=== PATIENT | female | born 1975 | race Caucasian/White ===

== ENCOUNTER 2018-04-10 15:30 | Inpatient (IN) | payer OTHER ==
[~2018-04-10] VITALS: Ht 157.5 cm; Wt 85.7 kg
--- NOTE | 2018-04-10 17:55 | NUR ---
DRILL DOCTOR PHONE REPORT FROM [place] REPORT RECEIVED FROM FRANCE CORDOVA IN THE ED @ [facility]. 42 YR OLD FEMALE PRESENTED IN ED WITH CHEST PAINS X3 WEEKS WORSE AT WORK TODAY AND 911 CALLED. VITALS FORM MEDICS ON SCENE AND ED ELEVATED BP 150/90 AND CHEST PAIN OF 10/10. PATIENT MOSTLY SYRIAC SPEAKING SO HISTORY LIMITED. KNOW HX DM II . FINDINGS IN ED NORMAL LABS AND VITALS , NEG . MEDS GIVEN IN ED NITRO X3 LAST DOSE @ 1430 MORPHINE 4 MG X2 @1511 ATIVAN X1 @1605 , ASA 325 @1408 ZOFRAN @1502. IV (R) AC 20 GAUGE. CURRENTLY ON 2LTRS N/C WITH O2 SAT @ 97. TRANSPORT READY TO LEAVE TO [facility].
[2018-04-10] MEDS ORDERED: LISI-607 PO (18:52)
[2018-04-10] MEDS ORDERED: ASPI-1152 PO (18:52)
[2018-04-10] MEDS ORDERED: SIMV10TA6 PO (18:52)
[2018-04-10] MEDS ORDERED: GLIP1TAB6 PO (18:52)
--- NOTE | 2018-04-10 18:54 | NUR ---
UKRAINIAN FOLK ARTS INSTRUCTORDIRECTOR ELECTRONICS NOTES PATIENT ARRIVED @ 1830 VIA AMBULANCE. A/O X3 NO SIGNS OR SYMPTOMS OF RESPIRATORY DISTRESS C/O SHARP CHEST PAIN 11/07. VITALS 118 Addendum: 04/10/18 at 1907 by RYDER ARMENTA RN VITALS FOLLOWS BP118/79 HR 82 RR 16 O2 98% ON RA. SINUS RHYTHM PATIENT WELL NOURISHED 42 TEAR OLD. SKIN INTACT WILL ENDORSE REPORT GIVEN BY SEDRICK HOUGH AND PARAMEDICS
[2018-04-10 20:00] VITALS: BP 132/87
--- NOTE | 2018-04-10 20:00 | NUR ---
CONSUMER CREDIT COUNSELOR NOTES REPORT RECEIVED FROM USHA CORDOVA. PT IS A DIRECT ADMIT FROM [place]. RECEIVED PT IN BED AWAKE FAMILY AT BED SIDE. PATIENT MOSTLY IRAQI SPEAKING, A& 0X4. VSS. (R) AC 20 GAUGE S/L. PT PLACED ON N/C WITH O2 SAT @ 98. PT ORIENTED TO UNIT. ALL SAFETY PRECAUTIONS TAKEN. AWAITING ORDERS FROM MD, WILL PROCEED WITH ADMISSION PROCESS AND WILL CONT TO MONITOR.
[2018-04-10] MEDS ORDERED: MORPHINE SULFATE INJ 2 MG/ML DISP.SYRIN IV PRN (20:30)
[2018-04-10] MEDS ORDERED: NITROGLYCERIN 0.4 MG/TAB BOTTLE SL PRN (20:30)
[2018-04-10] MEDS ORDERED: ZOLPIDEM TARTRATE 5 MG TABLET PO PRN (20:30)
[2018-04-10] MEDS ORDERED: HYDROCODONE/APAP 5/325MG 1 EACH TABLET PO PRN (20:30)
[2018-04-10] MEDS ORDERED: MAGNESIUM HYDROXIDE 30 ML UDC PO PRN (20:30)
[2018-04-10] MEDS ORDERED: ONDANSETRON HCL/PF 4 MG/2 ML VIAL IVP PRN (20:30)
[2018-04-10] MEDS ORDERED: MAG HYDROX/AL HYDROX/SIMETH 30 ML UDC PO PRN (20:30)
[2018-04-10] MEDS ORDERED: ACETAMINOPHEN 325 MG TABLET PO PRN (20:30)
[2018-04-10] MEDS ORDERED: Z GUARD REMEDY 2 OZ OINT TP PRN (20:30)
[2018-04-10] MEDS ORDERED: DEXTROSE 50%-WATER 50 ML DISP.SYRIN IV PRN (20:30)
--- NOTE | 2018-04-10 20:35 | NUR ---
RN NOTES ADMISSION ORDERS RECEIVED FROM DR AVRIL PETERS.
[2018-04-10] MEDS: INSULIN REGULAR, HUMAN 100 UNIT/ML 3 ML VIAL SQ PRN (21:14)
[2018-04-10] MEDS: BLOOD SUGAR DIAGNOSTIC 1 EACH STRIP IN SCH (21:15)
[2018-04-11] VITALS (15 sets, daily range): BP systolic 95–121; BP diastolic 50–73
--- NOTE | 2018-04-11 06:48 | NUR ---
RN CLOSING NOTES PATIENT REMAINED STABLE FOR THE ENTIRE SHIFT. NO ACUTE CHANGES NOTED. ALL NEEDS MET.ADMISSION COMPLETED. ALL MEDICATION GIVEN. EKG DONE LABS DONE. CALL LIGHT WITHIN REACH AT ALL TIME. SAFETY MEASURES KEPT IN PLACE. WILL ENDORSE TO AM SHIFT.
--- NOTE | 2018-04-11 07:00 | NUR ---
COMPTOMETER OPERATOR NOTES PATIENT IN BED ALERT ORIENTED X 3. HOB ELEVATED. NO ACUTE DISTRESS NOTED. DENIED ANY PAIN. IV ACCESS PATENT AND INTACT, NO REDNESS OR SWELLING. SAFETY MEASURES IN PLACE. CALL LIGHT WITHIN REACH. WILL CONTINUE TO MONITOR ACCORDINGLY.
[2018-04-11 07:14] LABS: BASOPHILS % (AUTO) 0.3 % (0.0-2.0); EOSINOPHILS % (AUTO) 1.7 % (0.0-6.0); HEMATOCRIT 38 % (33-45); HEMOGLOBIN 12.6 g/dL (11.5-14.8); LYMPHOCYTES # (AUTO) 2.1 /CMM (0.8-4.8); LYMPHOCYTES % (AUTO) 29.6 % (20.0-44.0); MEAN CORPUSCULAR HGB CONC 33 g/dl (31.0-36.0); MEAN CORPUSCULAR VOLUME 83 fL (82-100); MONOCYTES # (AUTO) 0.4 /CMM (0.1-1.30); MONOCYTES % (AUTO) 5.5 % (2.0-12.0); NEUTROPHILS # (AUTO) 4.4 /CMM (1.8-8.9); NEUTROPHILS % (AUTO) 62.9 % (43.0-81.0); PLATELET COUNT (AUTO) 237 /CMM (150-450); RDW COEFFICIENT OF VARIATION 13.4 (11.5-15.0); RED BLOOD CELL COUNT(AUTO) 4.64 MIL/uL (4.0-5.2); WHITE BLOOD COUNT (AUTO) 7.1 K/uL (4.3-11.0)
[2018-04-11 07:40] LABS: CALCIUM, SERUM 8.2 mg/dL (8.5-10.1); CREATININE 0.7 mg/dL (0.6-1.3); MAGNESIUM 1.7 mg/dL (1.8-2.4); PHOSPHORUS 3.6 mg/dL (2.5-4.9)
[2018-04-11 07:43] LABS: THYROID STIMULATING HORMONE 1.146 uIU/mL (0.358-3.74)
[2018-04-11] MEDS: BLOOD SUGAR DIAGNOSTIC 1 EACH STRIP IN SCH ×3 (08:16→17:51)
[2018-04-11] MEDS: glipiZIDE 5 MG TABLET PO SCH ×2 (08:17→16:30)
[2018-04-11] MEDS: INSULIN REGULAR, HUMAN 100 UNIT/ML 3 ML VIAL SQ PRN ×2 (08:19→17:52)
[2018-04-11] MEDS ORDERED: ASPIRIN EC 81 MG TABLET.DR PO SCH ×2 (09:00)
[2018-04-11] MEDS ORDERED: LISINOPRIL (5MG) 5 MG TABLET PO SCH (09:00)
[2018-04-11] MEDS ORDERED: SIMVASTATIN 10 MG TABLET PO SCH (09:00)
[2018-04-11] MEDS ORDERED: CARVEDILOL 12.5 MG TABLET PO SCH (09:30)
[2018-04-11] MEDS: METFORMIN 500 MG TABLET PO SCH ×2 (09:47→17:00)
[2018-04-11] MEDS: Magnesium 1GM/D5W 100ML PREMIX 100 ML IV SCH ×2 (10:10→13:42)
[2018-04-11] MEDS ORDERED: IOHEXOL-350 100 ML VIAL IV ONE ×2 (11:07→12:07)
[2018-04-11] MEDS ORDERED: IV NS 0.9% 250 ML IV ONE ×2 (11:07→12:07)
[2018-04-11] MEDS ORDERED: CT SWABBABLE VALVE TRANS SET 1 EA INFUS.SET MC ONE (11:07)
[2018-04-11] MEDS ORDERED: METOPROLOL TARTRATE INJ 5 MG/5 ML AMPUL ONE ×3 (11:30→11:57)
[2018-04-11] MEDS ORDERED: NITROGLYCERIN 0.4 MG/TAB BOTTLE ONE (11:32)
--- NOTE | 2018-04-11 12:25 | NUR ---
MANAGER DIVERSITY NOTES PATIENT CAME BACK FROM [facility] IN STABLE CONDITION, NO ACUTE DISTRESS NOTED. WILL CONTINUE TO MONITOR ACCORDINGLY.
[2018-04-11] MEDS ORDERED: IV NS 0.9% 1,000 ML IV PRN (13:30)
--- NOTE | 2018-04-11 13:30 | NUR ---
LIGHT RAIL TRAIN OPERATOR NOTES MONITORED VITAL SIGNS Q15 MINUTES FOR 1 HOUR , REMAINS TO HAVE STABLE VITAL SIGNS. NO ACUTE DISTRESS NOTED. WILL CONTINUE TO MONITOR PATIENT ACCORDINGLY.
--- NOTE | 2018-04-11 15:30 | NUR ---
PROJECT MANAGEMENT IT SPECIALIST NOTES MONITORED VITAL SIGNS Q30 mINUTES FOR 2 HOUR , REMAINS TO HAVE STABLE VITAL SIGNS. NO ACUTE DISTRESS NOTED. WILL CONTINUE TO MONITOR ACCORDINGLY.
--- NOTE | 2018-04-11 16:57 | NUR ---
PATIENT AMBULATED TO REPLACED BY [facility] ,HUSAM DIZZINESS AND CHEST PAIN,KURTIS GRIFFIN NOTIFIED WILL D/C HOME TODAY AND INSTRUCTED TO HOLD HER DIABETIC MEDS FOR 2 DAYS R/T CONTRAST STUDY.
--- NOTE | 2018-04-11 18:50 | NUR ---
FRUIT PICKER MACHINE OPERATOR NOTES PATIENT DISCHARGED HOME WITH STABLE VITAL SIGN. NO ACUTE DISTRESS NOTED. NO SOB NOTED. DENIED ANY PAIN. DISCHARGE INSTRUCTIONS GIVEN TO THE PATIENT WITH SON INCLUDING FOLLOW UP APPOINTMENT AND TO HOLD DIABETES MEDICATIONS FOR TWO DAYS, VERBALIZED UNDERSTANDING . IV ACCESS REMOVED, NO REDNESS , NO SWELLING OR BLEEDING NOTED. NEEDS ATTENDED AND ANTICIPATED. ALL BELONGINGS ACCOUNTED FOR. WHEELED TO THE LOBBY, ASSISTED TO A PRIVATE CAR, ACCOMPANIED BY AND SON, IN STABLE CONDITION.
== END 2018-04-11 18:50 | disposition home or self-care (01) | DRG 198 ==
LOC: TELE1 18:17 → MEDSG1 04-11 16:34
PROVIDERS: ADMIT Family Medicine; ATTEND Family Medicine
DX: I24.9 Acute ischemic heart disease, unspecified (principal); E88.81 Metabolic syndrome and other insulin resistance; E11.65 Type 2 diabetes mellitus with hyperglycemia; E83.42 Hypomagnesemia; I10 Essential (primary) hypertension; E66.9 Obesity, unspecified; Z79.84 Long term (current) use of oral hypoglycemic drugs; Z79.82 Long term (current) use of aspirin; Z79.899 Other long term (current) drug therapy; Z68.34 Body mass index [BMI] 34.0-34.9, adult; G47.33 Obstructive sleep apnea (adult) (pediatric)
CPT/HCPCS: 36415; 75574; 80048-TC; 80061-TC; 82962-TC; 83735-TC; 83880; 84100-TC; 84443-TC; 84484-TC; 85025-TC; 87081-TC; 93307-TC; A4606; G0378; J1815; J2270; J3475; J3490; J7030; J7050; Q9967; Z7610